=== PATIENT | male | born 1940 | race Two or more races ===

== ENCOUNTER → 2017-08-01 | Outpatient (CLI) | payer OTHER | END | disposition home or self-care (01) | LOC: LAB 08:39 | DX: D47.2 Monoclonal gammopathy (principal); D51.0 Vitamin B12 deficiency anemia due to intrinsic factor deficiency; D51.3 Other dietary vitamin B12 deficiency anemia; R97.0 Elevated carcinoembryonic antigen [CEA]; E03.8 Other specified hypothyroidism; E08.65 Diabetes mellitus due to underlying condition with hyperglycemia; I73.89 Other specified peripheral vascular diseases; K31.83 Achlorhydria; E78.5 Hyperlipidemia, unspecified; I10 Essential (primary) hypertension; D50.8 Other iron deficiency anemias; D51.8 Other vitamin B12 deficiency anemias; C90.00 Multiple myeloma not having achieved remission; R97.8 Other abnormal tumor markers ==

== ENCOUNTER 2017-11-17 08:07 | Emergency (ER) | payer OTHER ==
[~2017-11-17] VITALS: Ht 165.1 cm; Wt 77.1 kg
[2017-11-17] MEDS ORDERED: TIROSINT25 MCG PO (08:21)
[2017-11-17] MEDS ORDERED: AMLODIPINE BESYL5 MG PO (08:21)
[2017-11-17] MEDS ORDERED: TIZANIDINE HCL4 M1 PO (08:22)
[2017-11-17] MEDS ORDERED: MEDROL4 MG PO (08:23)
[2017-11-17] MEDS ORDERED: VITAMIN B-121000 MC4 PO (08:26)
[2017-11-17] MEDS ORDERED: GEMFIBROZIL600 MG PO (08:27)
[2017-11-17] MEDS ORDERED: METOPROLOL TAR100 MG PO (08:28)
[2017-11-17] MEDS ORDERED: JANUVIA50 MG PO (08:33)
== END 2017-11-17 10:38 | disposition home or self-care (01) ==
LOC: ER 08:07
DX: M54.5 Low back pain (principal)

== ENCOUNTER 2018-02-26 08:08 | Outpatient (CLI) | payer OTHER ==
[~2018-02-26 08:08] MED LIST: AMLODIPINE BESYL5 MG PO; GEMFIBROZIL600 MG PO; JANUVIA50 MG PO; MEDROL4 MG PO; METOPROLOL TAR100 MG PO; TIROSINT25 MCG PO; TIZANIDINE HCL4 M1 PO; VITAMIN B-121000 MC4 PO
== END 2018-02-26 08:32 | disposition home or self-care (01) ==
LOC: LAB 08:08
DX: D47.2 Monoclonal gammopathy (principal); D51.0 Vitamin B12 deficiency anemia due to intrinsic factor deficiency; D51.3 Other dietary vitamin B12 deficiency anemia; R97.0 Elevated carcinoembryonic antigen [CEA]; E08.65 Diabetes mellitus due to underlying condition with hyperglycemia; K31.83 Achlorhydria; I10 Essential (primary) hypertension; C90.00 Multiple myeloma not having achieved remission; E78.49 Other hyperlipidemia; R57.8 Other shock

== ENCOUNTER 2018-05-20 09:13 | Outpatient (CLI) | payer OTHER | END 2018-05-20 15:00 | disposition home or self-care (01) | LOC: LAB 09:13 | DX: D47.2 Monoclonal gammopathy (principal); D51.0 Vitamin B12 deficiency anemia due to intrinsic factor deficiency; D51.3 Other dietary vitamin B12 deficiency anemia; R97.0 Elevated carcinoembryonic antigen [CEA]; E03.8 Other specified hypothyroidism; I73.89 Other specified peripheral vascular diseases; K31.83 Achlorhydria; E78.49 Other hyperlipidemia; I10 Essential (primary) hypertension; E11.9 Type 2 diabetes mellitus without complications ==

== ENCOUNTER 2018-09-30 08:45 | Outpatient (CLI) | payer OTHER | END 2018-09-30 09:02 | disposition home or self-care (01) | LOC: LAB 08:45 | DX: D47.2 Monoclonal gammopathy (principal); D51.0 Vitamin B12 deficiency anemia due to intrinsic factor deficiency; D51.3 Other dietary vitamin B12 deficiency anemia; R97.0 Elevated carcinoembryonic antigen [CEA]; E03.8 Other specified hypothyroidism; E08.65 Diabetes mellitus due to underlying condition with hyperglycemia; I73.89 Other specified peripheral vascular diseases; K31.83 Achlorhydria; E78.49 Other hyperlipidemia; I10 Essential (primary) hypertension; D50.8 Other iron deficiency anemias; D51.8 Other vitamin B12 deficiency anemias; K90.89 Other intestinal malabsorption; R97.8 Other abnormal tumor markers ==

== ENCOUNTER → 2020-11-08 09:31 | Outpatient (CLI) | payer OTHER | END | disposition home or self-care (01) | LOC: LAB 09:31 | PROVIDERS: ATTEND Internal Medicine Hematology & Oncology | DX: D47.2 Monoclonal gammopathy (principal); D51.0 Vitamin B12 deficiency anemia due to intrinsic factor deficiency; D51.3 Other dietary vitamin B12 deficiency anemia; R97.0 Elevated carcinoembryonic antigen [CEA]; E08.65 Diabetes mellitus due to underlying condition with hyperglycemia; I73.89 Other specified peripheral vascular diseases; K31.83 Achlorhydria; I10 Essential (primary) hypertension; R97.20 Elevated prostate specific antigen [PSA]; E78.2 Mixed hyperlipidemia; E03.8 Other specified hypothyroidism; C90.00 Multiple myeloma not having achieved remission; R97.8 Other abnormal tumor markers ==

== ENCOUNTER 2021-07-24 07:15 | Outpatient (CLI) | payer OTHER | END 2021-07-24 07:38 | disposition home or self-care (01) | LOC: LAB 07:15 | PROVIDERS: ATTEND Internal Medicine Hematology & Oncology | DX: D50.8 Other iron deficiency anemias (principal); R74.02 Elevation of levels of lactic acid dehydrogenase [LDH]; K76.89 Other specified diseases of liver; D51.8 Other vitamin B12 deficiency anemias; E55.9 Vitamin D deficiency, unspecified; D47.2 Monoclonal gammopathy; C90.00 Multiple myeloma not having achieved remission; R97.0 Elevated carcinoembryonic antigen [CEA]; R97.8 Other abnormal tumor markers; R97.20 Elevated prostate specific antigen [PSA]; D51.0 Vitamin B12 deficiency anemia due to intrinsic factor deficiency; D51.3 Other dietary vitamin B12 deficiency anemia; E08.65 Diabetes mellitus due to underlying condition with hyperglycemia; I73.9 Peripheral vascular disease, unspecified; K31.83 Achlorhydria; E78.2 Mixed hyperlipidemia; E03.8 Other specified hypothyroidism; E78.1 Pure hyperglyceridemia; I11.9 Hypertensive heart disease without heart failure ==

== ENCOUNTER 2021-07-26 06:58 | Outpatient (CLI) | payer OTHER | END 2021-07-26 07:20 | disposition home or self-care (01) | LOC: TOM 06:58 | PROVIDERS: ATTEND Internal Medicine Cardiovascular Disease | DX: I77.819 Aortic ectasia, unspecified site (principal) | CPT/HCPCS: 71275; Q9965 ==

== ENCOUNTER 2022-04-02 06:22 | Outpatient (CLI) | payer OTHER | END 2022-04-02 06:32 | disposition home or self-care (01) | LOC: LAB 06:22 | PROVIDERS: ATTEND Internal Medicine Hematology & Oncology | DX: D50.8 Other iron deficiency anemias (principal); I10 Essential (primary) hypertension; R74.02 Elevation of levels of lactic acid dehydrogenase [LDH]; K76.89 Other specified diseases of liver; D51.8 Other vitamin B12 deficiency anemias; E03.8 Other specified hypothyroidism; D47.2 Monoclonal gammopathy; C90.00 Multiple myeloma not having achieved remission; R97.0 Elevated carcinoembryonic antigen [CEA]; R97.8 Other abnormal tumor markers; R97.20 Elevated prostate specific antigen [PSA]; D51.0 Vitamin B12 deficiency anemia due to intrinsic factor deficiency; D51.3 Other dietary vitamin B12 deficiency anemia; E08.65 Diabetes mellitus due to underlying condition with hyperglycemia; I73.9 Peripheral vascular disease, unspecified; K31.83 Achlorhydria; E78.2 Mixed hyperlipidemia; Z13.220 Encounter for screening for lipoid disorders; Z12.5 Encounter for screening for malignant neoplasm of prostate; N39.9 Disorder of urinary system, unspecified; N25.81 Secondary hyperparathyroidism of renal origin; M00.80 Arthritis due to other bacteria, unspecified joint; D64.89 Other specified anemias ==

== ENCOUNTER 2022-04-05 07:26 | Outpatient (CLI) | payer OTHER | END 2022-04-05 07:37 | disposition home or self-care (01) | LOC: SONOGRAMA 07:26 | PROVIDERS: ATTEND Specialist | DX: I71.40 Abdominal aortic aneurysm, without rupture, unspecified (principal); J45.998 Other asthma ==

== ENCOUNTER 2022-04-09 11:27 | Outpatient (CLI) | payer OTHER | END 2022-04-09 11:34 | disposition home or self-care (01) | LOC: TOM 11:27 | PROVIDERS: ATTEND Specialist | DX: I63.9 Cerebral infarction, unspecified (principal) ==

== ENCOUNTER 2022-04-25 06:39 | Outpatient (CLI) | payer OTHER | END 2022-04-25 06:47 | disposition home or self-care (01) | LOC: LAB 06:39 | PROVIDERS: ATTEND Specialist | DX: E11.21 Type 2 diabetes mellitus with diabetic nephropathy (principal) ==

== ENCOUNTER → 2022-04-26 | Outpatient (CLI) | payer OTHER | END | disposition home or self-care (01) | LOC: MRI 08:30 | DX: H81.393 Other peripheral vertigo, bilateral (principal); H90.3 Sensorineural hearing loss, bilateral | CPT/HCPCS: 70553; Q9965 ==

== ENCOUNTER 2024-09-08 11:33 | Outpatient (CLI) | payer OTHER | END 2024-09-08 11:39 | disposition home or self-care (01) | LOC: TOM 11:33 | PROVIDERS: ATTEND Specialist | DX: U07.1 COVID-19 (principal) ==

== ENCOUNTER → 2024-12-03 07:19 | Outpatient (CLI) | payer OTHER ==
[2024-12-03 07:58] LABS: BASO % 0.5 % (0.1-1.2); EOS # 0.33 (0.04-0.54); EOS % 4.3 % (0.7-7.0); LYMPH # 1.63 (1.18-3.74); LYMPH % 21.1 % (19.3-53.1); MEAN PLATELET VOLUME 10.40 fl (9.4-12.4); MONO # 0.56 (0.24-0.82); MONO % 7.3 % (4.7-12.5); NEUT # 5.13 (1.56-6.13); NEUT % 66.4 % (34.0-71.1); RED CELL DISTRIBUTION WIDTH 13.0 % (11.6-14.4)
[2024-12-03 09:35] LABS: ALT/SGPT 24.0 U/L (12-78); AST/SGOT 25.0 U/L (15-37); BILIRUBIN TOTAL 0.66 mg/dL (0.3-1.2); BUN CREA RATIO 18.0 (7.0-25.0); CHOL HDL RATIO 3.0 (0-5.0); CREATININE SERUM 1.52 mg/dL (0.70-1.30); FE 64.0 ug/dl (65-175); GFR 43.7; GLOBULINA 3.4 G/DL (2.4-3.5); GLUCOSE FASTING 130.0 mg/dL (65-100); HDL 37.0 mg/dl (40-60); LDH 214.0 U/L (87-241); LDL 58.0 mg/dl (0-130); OSMOLALITY SERUM 290.0 MOSM/KG (275-295); VLDL 16.0 (0-39)
[2024-12-03 09:40] LABS: PROSTATIC SPECIFIC ANTIGEN 4.98 NG/ML (0.010-4.00)
[2024-12-03 13:26] LABS: FOLIC ACID 13.75 ng/ml (4.78-20)
[2024-12-04 11:07] LABS: kappa lambda r 1.9 (0.26-1.65); kappa light 57.9 mg/L (3.3-19.4)
[2024-12-06 17:07] LABS: BETA-2-MICROGLOBULINA 4.0 mg/L (0.6-2.4)
== END | disposition home or self-care (01) ==
LOC: LAB 07:19
PROVIDERS: ATTEND Internal Medicine Hematology & Oncology
DX: D47.2 Monoclonal gammopathy (principal); D51.0 Vitamin B12 deficiency anemia due to intrinsic factor deficiency; D51.3 Other dietary vitamin B12 deficiency anemia; R97.0 Elevated carcinoembryonic antigen [CEA]; E08.65 Diabetes mellitus due to underlying condition with hyperglycemia; I73.9 Peripheral vascular disease, unspecified; K31.83 Achlorhydria; I10 Essential (primary) hypertension; R97.20 Elevated prostate specific antigen [PSA]; E78.2 Mixed hyperlipidemia; E03.8 Other specified hypothyroidism; C90.00 Multiple myeloma not having achieved remission; D50.8 Other iron deficiency anemias; R74.02 Elevation of levels of lactic acid dehydrogenase [LDH]; K76.89 Other specified diseases of liver; D51.8 Other vitamin B12 deficiency anemias; I11.9 Hypertensive heart disease without heart failure; E78.1 Pure hyperglyceridemia